=== PATIENT | male | born 1990 | race Two or more races ===

== ENCOUNTER 2018-07-02 10:26 | Outpatient (CLI) | payer OTHER | END 2018-07-02 10:41 | disposition home or self-care (01) | LOC: RAD 501 10:26 | DX: K92.2 Gastrointestinal hemorrhage, unspecified (principal); D12.8 Benign neoplasm of rectum; D12.9 Benign neoplasm of anus and anal canal; K64.2 Third degree hemorrhoids ==

== ENCOUNTER → 2018-07-15 | Day surgery (SDC) | payer OTHER | END | disposition home or self-care (01) | LOC: ADM 07-08 08:30 → CIR.AMB 08:30 | DX: K62.3 Rectal prolapse (principal); K64.8 Other hemorrhoids; K64.4 Residual hemorrhoidal skin tags ==